=== PATIENT | female | born 1970 | race Caucasian/White ===

== ENCOUNTER 2016-07-22 00:30 | Inpatient (IN) | payer OTHER ==
--- NOTE | ~2016-07-22 | DS ---
Unit #: [id number] #: [id number] Patient: OBIE MORENO [id number] [address] [address] [id number] I MR#: [id number] NAME: OBIE MORENO ROOM: 568 Age: 46 Sex: F Admission Date: 07/22/2016 : 1970 Discharge Date: 07/25/2016 Attending Physician: Corrina Tom M.D. Primary Care Physician: No Primary Care Physician DISCHARGE SUMMARY PRINCIPAL DIAGNOSES 1. Acute on chronic hypercapnic/hypoxic respiratory failure, now maintained on 2 to 3 L per nasal cannula continuously. 2. Acute exacerbation of chronic obstructive pulmonary disease. 3. Acute on chronic systolic congestive heart failure with ejection fraction of 25% to 30%. 4. Iron deficiency anemia: Discharge hemoglobin 7.8. 5. Diabetes mellitus type 2, insulin requiring and uncontrolled. 6. Systemic inflammatory response syndrome, now resolved. 7. Hypokalemia, resolved. 8. Depression. 9. History of seizure versus pseudoseizure. 10. Atrial fibrillation, currently maintained in normal sinus rhythm. 11. Recent history of gastrointestinal bleed. 12. Obesity, morbid. 13. Mild protein malnutrition. 14. Pulmonary hypertension, moderate to severe. 15. Sepsis secondary to Moraxella bronchitis. CONSULTANTS Dr. Tejeda - Pulmonology. PROCEDURES 1. Two dimensional echocardiogram on July 22, 2016, with ejection fraction of 25% to 30%. Moderate concentric left ventricular hypertrophy noted. Moderately dilated left atrium and large right atrium and right ventricle. Mild to moderate mitral regurgitation, mild to moderate tricuspid regurgitation, mild to moderate pulmonic valve regurgitation. Right ventricular systolic pressure is 63 mmHg. 2. Chest x-ray on July 22, 2016, with interstitial prominence in the perihilar and lower lobe. 3. Bilateral extremity venous Doppler which is negative for DVT. 4. CT angiogram of the chest on July 22, 2016, which is negative for PE. Cardiomegaly with pleural effusion noted. Infiltrate or atelectasis left lower lobe noted. CLINICAL HISTORY/HOSPITAL COURSE Ms. Moreno is a nice 46-year-old -[place] female who presents to the emergency department with shortness of breath. Please refer to H and P for further details. In the emergency department, the patient was found to be hypertensive and oxygen saturations were low end of normal. BNP was mildly elevated and chest x-ray was concerning for pulmonary edema. The patient was Unit #: [id number] #: [id number] Patient: OBIE MORENO subsequently admitted. The patient was placed on IV diuretics in addition to IV steroids due to an associated COPD exacerbation. Pulmonary was consulted. The patient's mild pulmonary edema has resolved and, fortunately, her wheezing has also improved with IV steroids. We are going to transition to oral steroids. Sputum did grow Moraxella for which she has been on appropriate treatment. The patient did develop significant hyperglycemia, steroid-induced. Her hemoglobin A1c here is still currently pending. However, her sugars would range in the 200 to 300s. I am going to increase her Lantus at home and she will have to follow her diet closely while on steroid therapy. The patient's other chronic issues remain stable. She will be discharged home today. DISCHARGE CONDITION Stable. DISCHARGE STATUS Discharge to home. DISCHARGE MEDICATIONS 1. Azithromycin 250 mg p.o. daily for another four days. 2. Proventil nebulizer solution, 3 mL every four hours. 3. ProAir HFA, two puffs every four hours p.r.n. for shortness of breath. 4. Symbicort 160/4.5 mcg, two puffs b.i.d. 5. Prednisone 10 mg tablets, four tablets for three days, then three tablets for three days, then two tablets for three days, then one tablet for three days, then discontinue. 6. Amiodarone 200 mg daily. 7. Spiriva 18 mcg, one puff daily. 8. Gabapentin 300 mg t.i.d. 9. Keppra 1000 mg b.i.d. 10. Zonegran 100 mg daily. 11. Zoloft 50 mg at bedtime. 12. Metformin 1000 mg b.i.d. 13. Januvia 100 mg daily. 14. Phenergan 25 mg p.o. q.6 hours p.r.n. for nausea or vomiting. 15. Norvasc 5 mg daily. 16. Metoprolol tartrate 50 mg b.i.d. 17. Bumex 2 mg b.i.d. 18. Zaroxolyn 10 mg p.o. daily on Monday, Monday, Monday. 19. Lipitor 80 mg daily. 20. Hydralazine 50 mg t.i.d. 21. Losartan 100 mg daily. 22. Lantus 40 units subcutaneously at bedtime. 23. Ferrous sulfate 160 mg daily. 24. Singulair 10 mg daily. 25. A daily multivitamin. 26. [place] 10/325, one tablet p.o. q.6 hours p.r.n. for pain. 27. Prilosec 20 mg daily. 28. Imdur ER 120 mg daily. 29. Nitroglycerin 0.4 mg sublingual q.5 minutes p.r.n. for chest pain. 30. Folic acid 1 mg daily. DISCHARGE INSTRUCTIONS Unit #: [id number] #: [id number] Patient: OBIE MORENO The patient was instructed to follow a CCD, heart healthy, low calorie diet. She can continue Accu-Cheks a.c. and h.s. at home. She can increase her activity as tolerated. She should wear oxygen at 2 to 3 L per nasal cannula at all times. FOLLOWUP The patient will follow up with Dr. Tejeda in two weeks. She will follow up with her primary care provider in two weeks as well. Time spent on discharge - 34 minutes. Dictated by... Corrina Tom M.D. BURKE/kraig TD: 07/26/2016 09:15 JOB #: [id number] DISCHARGE SUMMARY Page 1 of 1 X Corrina Tom MD X DISCHARGE SUMMARY
--- NOTE | ~2016-07-22 | US84 ---
[id number] [facility] [address] [place], [place] [address] [id number] I MR#: [id number] Acc #: [id number] NAME: OBIE MORENO : 1970 SEX: F STUDY DATE/TIME: 07/22/2016 18:26 UNIT: [facility] ROOM: [facility] STUDY DESCRIPTION: US LE Veins Complete Homero Stdy Attending Physician: Corrina Tom M.D. Ordering Physician: Corrina Tom M.D. Primary Care Physician: No Primary Care Physician MEDICAL IMAGING REPORT This report is preliminary unless electronic signature is present EXAM Bilateral lower extremity venous duplex 07/22/2016 HISTORY Shortness of breath for 2 years with bilateral lower extremity edema for 1 week. Evaluate for deep vein thrombosis. TECHNIQUE Venous ultrasound examination of both lower extremities was performed using grayscale, spectral Doppler and color flow Doppler imaging. FINDINGS The examination is negative. There is no evidence of deep venous thrombus from the groin to the lower calf bilaterally. Visualized greater saphenous veins are also patent. IMPRESSION Negative examination. No evidence of lower extremity deep venous thrombosis. Dictated by... Gagan Garcia M.D. THIS IS AN ELECTRONICALLY VERIFIED REPORT Gagan Garcia M.D. at 07/25/2016 8:26 AM PINEDA/mildred TD: 07/22/2016 23:31 JOB #: [id number] MEDICAL IMAGING REPORT Page 1 of 1 COPY
--- NOTE | ~2016-07-22 | CR72 ---
[facility] A Service of [facility] RADIOLOGY TEXT RESULTS PATIENT: OBIE OMRENO LOCATION: [facility] 568-01 : [birth year] UNIT #: [id number] AGE: [address]: Corrina Tom MD SEX: F ORDER DR: [id number] [facility] [address]. [place], [place] [address] [id number] I MR#: [id number] Acc #: [id number] NAME: OBIE MORENO : 1970 SEX: F STUDY DATE/TIME: 07/25/2016 5:39 UNIT: [facility] ROOM: [facility] STUDY DESCRIPTION: CR Chest Single View Portable Attending Physician: Corrina Tom M.D. Ordering Physician: Willy Tejeda M.D. Primary Care Physician: Primary Care Physician No MEDICAL IMAGING REPORT This report is preliminary unless electronic signature is present EXAM AP portable chest 07/25/16 at 05:39. HISTORY Shortness breath, left side chest pain, congestive heart failure. Symptoms began 3 days ago. Additional history of COPD and hypertension. COMPARISON AP portable chest 07/22/2016. FINDINGS Moderate to marked generalized cardiac cardiomediastinal enlargement persists. The study is attenuated by body habitus. Ill-defined interstitial and alveolar opacities are thought to be present throughout the right lung, may be slightly increased. Developing consolidation and/or atelectasis with volume loss left lower lung noted. Left chest wall pacemaker appears stable. IMPRESSION 1. Increasing dense consolidation and/or atelectasis with volume loss in the left lower lobe. 2. Worsening diffuse interstitial and alveolar infiltrates in the right lung since 07/22/2016. 3. Moderate to marked generalized cardiomediastinal enlargement not thought to be significantly changed. In part, this could be related to pericardial effusion described on the 07/22/2016 CT chest, as well. 4. No visible pneumothorax. Dictated by... Loretta Story M.D. THIS IS AN ELECTRONICALLY VERIFIED REPORT [facility] A Service of [facility] RADIOLOGY TEXT RESULTS PATIENT: OBIE MORENO LOCATION: [facility] 568-01 : [birth year] UNIT #: [id number] AGE: [address]: Corrina Tom MD SEX: F ORDER DR: Loretta Story M.D. at 07/26/2016 2:00 PM KORINA/elias TD: 07/25/2016 11:17 JOB #: [id number] MEDICAL IMAGING REPORT Page 1 of 1 COPY
--- NOTE | ~2016-07-22 | EKG ---
PATIENT: OBIE MORENO UNIT #: [id number] Ventricular Rate: 106 BPM Atrial Rate: 106 BPM P-R Interval: 128 ms QRS Duration: 86 ms Q-T Interval: 366 ms QTC Calculation(Bezet): 486 ms P [place]: 35 degrees Calculated R [place]: 35 degrees Calculated T [place]: 12 degrees Diagnosis Line: Sinus tachycardia with occasional Premature Diagnosis Line: ventricular complexes Diagnosis Line: Nonspecific T wave abnormality Diagnosis Line: Abnormal ECG Diagnosis Line: No previous ECGs available Diagnosis Line: Confirmed by SONDRA CRUZ MD ([id number]) on Diagnosis Line: 07/22/2016 4:06:28 PM INTERPRETING MD: CONNIE
--- NOTE | ~2016-07-22 | CR72 ---
[facility] A Service of [facility] & [facility] RADIOLOGY TEXT RESULTS PATIENT: OBIE MORENO LOCATION: [facility] : [birth year] UNIT #: [id number] AGE: [address]: Thai Olguin MD SEX: F ORDER DR: [id number] [facility] [address] [place], [place] [address] [id number] MR#: [id number] Acc #: [id number] NAME: OBIE MORENO : 1970 SEX: F STUDY DATE/TIME: 07/22/2016 1:04 UNIT: [facility] ROOM: STUDY DESCRIPTION: CR Chest Single View Portable Attending Physician: Thai Olguin M.D. Ordering Physician: Thai Olguin M.D. Primary Care Physician: Primary Care Physician No MEDICAL IMAGING REPORT This report is preliminary unless electronic signature is present EXAM Portable chest INDICATIONS Shortness of air and left-sided chest pain 2 days. COMPARISON 04/01/15 FINDINGS This portable view of the chest shows stable marked cardiomegaly. There is mild interstitial prominence particularly in the perihilar and lower lobe regions. There are no effusions. The dual-lead pacemaker is stable. Dictated by... Obey Beaver M.D. THIS IS AN ELECTRONICALLY VERIFIED REPORT Obey Beaver M.D. at 07/22/2016 2:12 AM SONYA/scooter TD: 07/22/2016 01:49 JOB #: [id number] MEDICAL IMAGING REPORT Page 1 of 1 COPY
--- NOTE | ~2016-07-22 | HP ---
Unit #: [id number] #: [id number] Patient: OBIE MORENO [id number] [address] [place], [place] [address] [id number] I MR#: [id number] NAME: OBIE MORENO ROOM: 568 Age: 46 Sex: F Admission Date: 07/22/2016 : 1970 Attending Physician: Estefania Wesley M.D. Primary Care Physician: No Primary Care Physician HISTORY AND PHYSICAL CHIEF COMPLAINT Dyspnea. HISTORY This pleasant 46-year-old female with a cardiomyopathy, AODM, COPD is admitted for dyspnea. The patient tells me that she was admitted to [facility] about two weeks ago for what sounds to be a diverticular bleed while on Xarelto requiring transfusion. Her anticoagulation was discontinued, although I believe she is taking Plavix still. She states that she was well until two days ago when she developed increasing shortness of breath and orthopnea with constant lower nonradiating chest discomfort, perhaps with a minor pleuritic component. Also notes weight gain over the past week. She tried using her usual inhaler without improvement. Presented to this emergency department early this morning where she was hypertensive with a blood pressure of 182/102, her O2 saturation was 82% but this was on room air. Normally the patient requires 3 L of oxygen. On 3 L of oxygen her current O2 saturation is 96%. On examination she has significant bronchospasm bilaterally. Chest x-ray shows some mild congestive heart failure and the patient's BNP is modestly elevated. She was given nitroglycerin without improvement of her chest pain but this did help her blood pressure. Was given 2 mg of IV Bumex and some Tylenol. Continues to feel short of breath. PAST MEDICAL HISTORY 1. Congestive heart failure with an ejection fraction of 10-20%, status post AICD placement. Patient states that she abused cocaine in the remote past, which caused her cardiomyopathy. 2. COPD on 3 L of oxygen. 3. Atrial fibrillation. 4. Pseudoseizures. 5. AODM. 6. GI bleeding recently, which the patient states was diverticular. Will obtain records. 7. AICD. 8. Pacemaker. 9. D and C. 10. BTL. ALLERGIES Penicillin, Dilantin, Ibuprofen, Zofran, Levaquin, and Xarelto, although patient is not truly allergic to Xarelto, that caused GI bleeding. Unit #: [id number] #: [id number] Patient: OBIE MORENO HOME MEDICATIONS As best I can determine include albuterol, amiodarone 200 mg daily, Bumex 2 mg b.i.d., Neurontin 600 mg b.i.d., Imdur 60 mg daily, Keppra 1,000 mg b.i.d., Lantus 25 units subcu q.h.s., metoprolol 25 mg b.i.d., Prilosec daily, Symbicort, [place] 10/325 q.6 hours, Plavix, prednisone possibly 20 mg daily, NovoLog 15 units subcu b.i.d. with meals, losartan 100 mg daily, oxygen 3 L per nasal cannula, Zoloft 50 mg daily, Viagra 10 mg b.i.d. Will verify home medicines. FAMILY HISTORY CVA, diabetes, congestive heart failure. SOCIAL HISTORY The patient lives with her fiancee. Really smokes tobacco and does not drink alcohol. Remote history of cocaine use. Patient has been clean and sober for many years. REVIEW OF SYSTEMS Notable for shortness of breath, bronchospasm, COPD, cardiomyopathy, increased weight gain, hypertension, AODM, depression, chronic pain, above mentioned surgeries, GI bleeding. All other systems were reviewed and are otherwise negative. PHYSICAL EXAMINATION GENERAL: Pleasant, obese, 46-year-old female currently in no acute distress. VITAL SIGNS: Temperature 98.6, pulse 116, respirations 25, initial blood pressure 182/102. Current blood pressure is 158/94, O2 saturation is 96% on 3 L of oxygen but was 82% on room air. HEENT: Eyes - PERRLA, extraocular muscles are intact. Pharynx is benign. NECK: Supple without adenopathy or thyromegaly. CHEST: Chest reveals expiratory wheezes bilaterally. CARDIAC: Normal S1 and S2 without S3, S4 or murmur. ABDOMEN: Bowel sounds are present. No hepatosplenomegaly, tenderness or masses. EXTREMITIES: Without edema. Pedal pulses are present. No ulcers on the feet. NEUROLOGIC: Patient is awake, alert and oriented. Cranial nerves are intact. Equal strength throughout. DIAGNOSTIC STUDIES ADMISSION LABS: Hematocrit is 24.5 down from 32.2 three years ago; MCV 68, white blood count 12.1, normal platelet count. Coags normal. SMA 12 - glucose 222, potassium 3.2, chloride 96, CO2 is 34, calcium 7.7, albumin is 3.3. BNP is 442. Cardiac markers are negative. IMAGING STUDIES: Chest x-ray - stable marked cardiomegaly, mild congestive heart failure. CARDIOLOGY STUDIES: EKG - sinus tachycardia, rate 106, some nonspecific ST wave abnormalities. ASSESSMENT 1. Dyspnea, likely COPD exacerbation. Patient have a mild element of congestive heart failure. 2. Cardiomyopathy, ejection fraction 10% to 20%, status post AICD placement. 3. Microcytic anemia with history of what sounds to be diverticular Unit #: [id number] #: [id number] Patient: OBIE MORENO bleeding a couple of weeks ago at [facility]. Xarelto was discontinued at that time. 4. Chronic respiratory failure/COPD. 5. Hypertension. 6. Depression. 7. Chronic pain. 8. AODM. 9. Hypokalemia. PLANS 1. Replace potassium and check magnesium. 2. DuoNeb and steroids. 3. IV Bumex, obtain I's and O's and daily weights. 4. Will obtain an echo as the ER physician did perform a bedside echo and believes a pericardial effusion is present. 5. Transfuse 1 unit of blood. 6. Obtain D-dimer. 7. Obtain records from [facility]. 8. Verify home medicines. Dictated by Estefania Wesley M.D. AML/ts TD: 07/22/2016 06:20 JOB #: [id number] HISTORY AND PHYSICAL Page 1 of 1 X Estefania Wesley MD HISTORY AND PHYSICAL
--- NOTE | ~2016-07-22 | CT16 ---
[facility] A Service of [facility] & [facility] RADIOLOGY TEXT RESULTS PATIENT: OBIE MORENO LOCATION: [facility] 568-01 : [birth year] UNIT #: [id number] AGE: [address]: Corrina Tom MD SEX: F ORDER DR: [id number] [facility] [address]. [place], [place] [address] [id number] I MR#: [id number] Acc #: [id number] NAME: OBIE MORENO : 1970 SEX: F STUDY DATE/TIME: 07/22/2016 18:57 UNIT: [facility] ROOM: [facility] STUDY DESCRIPTION: CT Angio Chest for PE Attending Physician: Corrina Tom M.D. Ordering Physician: Corrina Tom M.D. Primary Care Physician: No Primary Care Physician MEDICAL IMAGING REPORT This report is preliminary unless electronic signature is present EXAM CT scan of the chest with intravenous contrast 07/22/2016 HISTORY Shortness of breath since 07/21/2016. Congestive heart failure, hypertension and diabetes. Evaluate for pulmonary embolus. TECHNIQUE Spiral CT was performed through the chest following intravenous contrast administration using pulmonary embolus protocol. 3-D reconstructions of the chest were then performed following intravenous contrast administration. This CT exam was performed with one or more of the following radiation dose reduction techniques: automatic control, adjustment of mA and/or kV according to patient size, and iterative reconstruction. FINDINGS There is no CT evidence for pulmonary embolus. There is mild cardiac enlargement. There is a pericardial effusion which measures 2 cm in greatest diameter. There is no significant thoracic adenopathy. There are no pleural effusions. Atelectatic changes are seen in the right middle lobe and the lower lobes bilaterally. Atelectasis or infiltrate left lower lobe. Images of the upper abdomen demonstrates stable low-density lesion on the right adrenal gland compared with 11/17/2013 probably representing an adenoma. IMPRESSION 1. No CT evidence for pulmonary embolus. 2. Cardiomegaly with pericardial effusion measuring 2 cm in greatest diameter. 3. Infiltrate or atelectasis left lower lobe. Clinical correlation recommended. 4. Stable low-density lesion extending off the right adrenal gland [facility] A Service of [facility] & [facility] RADIOLOGY TEXT RESULTS PATIENT: OBIE MORENO LOCATION: [facility] 568-01 : [birth year] UNIT #: [id number] AGE: [address]: Corrina Tom MD SEX: F ORDER DR: compared with 11/17/2013 probably representing an adenoma. Dictated by... Gagan Garcia M.D. THIS IS AN ELECTRONICALLY VERIFIED REPORT Gagan Garcia M.D. at 07/25/2016 8:27 AM PINEDA/mildred TD: 07/22/2016 23:59 JOB #: [id number] MEDICAL IMAGING REPORT Page 1 of 1 COPY
[~2016-07-22 00:30] MED LIST: ALBUTEROL17 GM INH; AMLODIPINE BESY10 MG PO; COLACE PO; COMBIVENT U/D3 M4 INH; CORDARONE200 M1 PO; FAMOTIDINE20 M1 PO; GABAPENTIN300 MG PO; GLUCOPHAGE XR500 MG PO; HYDRALAZINE HCL50 MG PO; LASIX20 MG PO; LEVETIRACETAM1000 MG PO; LIPITOR20 MG PO; LISINOPRIL20 MG PO; LOPRESSOR PO; LORTAB 5/500 TA1 TA2 PO; PHENERGAN25 M1 PO; SERTRALINE HCL25 M1 PO; XARELTO20 MG PO; ZONEGRAN100 M1 PO
[2016-07-22 01:07] LABS: BASOPHIL# 0.1 X10e3 (0-0.3); BASOPHIL% 0.6 % (0-2.5); EOSINOPHIL# 0.1 X10e3 (0-0.7); EOSINOPHIL% 0.6 % (0.0-7.0); HEMATOCRIT 24.5 % (35.0-45.0); HEMOGLOBIN 7.4 gm/dL (12.0-16.0); LYMPHOCYTE# 1.5 X10e3 (1.0-3.5); LYMPHOCYTE% 12.7 % (17.0-45.0); MEAN CELL VOLUME 67.9 FL (83-96); MEAN CORPUSCULAR HEMOGLOBIN 20.5 PG (28-34); MEAN CORPUSCULAR HGB CONC 30.2 g/dL (30-36); MEAN PLATELET VOLUME 8.6 FL (6.5-11.5); MONOCYTE# 0.9 X10e3 (0-1.0); MONOCYTE% 7.3 % (3.0-12.0); NEUTROPHIL# 9.6 X10e3 (1.5-7.1); NEUTROPHIL% 78.8 % (40-75); PLATELET COUNT 189 X10e3 (140-420); RED BLOOD COUNT 3.61 X10e (3.90-5.30); RED CELL DISTRIBUTION WIDTH 23.1 % (11.0-15.5); WHITE BLOOD COUNT 12.1 X10e3 (4.0-10.5)
[2016-07-22 01:09] LABS: DIFF IND YES
[2016-07-22 01:11] LABS: POC - CKMB 1.2 ng/mL (0.0-7.9); POC - TROPONIN <0.05 ng/mL (<=0.05)
[2016-07-22 01:17] LABS: PARTIAL THROMBOPLASTIN TIME 23.4 SECONDS (23.5-31.3)
[2016-07-22 01:23] LABS: ALBUMIN SERUM 3.3 g/dL (3.5-5.0); BILIRUBIN, DIRECT 0.2 mg/dL (0.0-0.2); BILIRUBIN,TOTAL 1.2 mg/dL (0.2-2.0); BUN/CREATININE RATIO 7.77; CALCIUM SERUM 7.7 mg/dL (8.4-10.2); CREATININE SERUM 0.9 mg/dL (0.6-1.4); GLOM FILT RATE Estimated 76.2 mL/min (>60); POTASSIUM 3.2 mmol/L (3.5-5.1); PROTEIN TOTAL SERUM 6.3 g/dL (6.0-8.3)
[2016-07-22 02:00] LABS: NUCLEATED RED BLOOD CELL 1 /100 (0); PLATELET ESTIMATE DECREASED (NORMAL)
[2016-07-22 02:01] LABS: OVALOCYTES PRESENT; POIKILOCYTOSIS SL; POLYCHROMASIA SL
[2016-07-22 02:42] LABS: POC - CKMB 1.6 ng/mL (0.0-7.9); POC - TROPONIN <0.05 ng/mL (<=0.05)
[2016-07-22] MEDS ORDERED: PT UNABLE TO RECALL (04:18)
[2016-07-22] MEDS ORDERED: FERROUS SULFAT160 MG PO (05:57)
[2016-07-22] MEDS ORDERED: LORTAB 10-3251 EACH PO (06:03)
[2016-07-22] MEDS ORDERED: PREDNISONE10 MG PO (06:04)
[2016-07-22] MEDS ORDERED: LOPRESSOR PO (06:04)
[2016-07-22] MEDS ORDERED: PROAIR HFA8.5 GM INH (06:06)
[2016-07-22] MEDS ORDERED: ALBUTEROL 0.5ML NEB (06:06)
[2016-07-22] MEDS ORDERED: AMIODARONE PO (06:06)
[2016-07-22] MEDS ORDERED: AMLODIPINE BESYL5 MG PO (06:07)
[2016-07-22] MEDS ORDERED: LIPITOR PO (06:07)
[2016-07-22] MEDS ORDERED: SYMBICORT INH (06:08)
[2016-07-22] MEDS ORDERED: BUMEX PO (06:08)
[2016-07-22] MEDS ORDERED: FOLIC ACID1 MG PO (06:08)
[2016-07-22] MEDS ORDERED: HYDRALAZINE HCL50 MG PO (06:09)
[2016-07-22] MEDS ORDERED: GABAPENTIN300 MG PO (06:09)
[2016-07-22] MEDS ORDERED: LANTUS100 U/ML SUBQ (06:10)
[2016-07-22] MEDS ORDERED: IMDUR PO (06:10)
[2016-07-22] MEDS ORDERED: KEPPRA1000 MG PO (06:11)
[2016-07-22] MEDS ORDERED: LISINOPRIL10 MG PO (06:11)
[2016-07-22] MEDS ORDERED: ZAROXOLYN10 MG PO (06:12)
[2016-07-22] MEDS ORDERED: METFORMIN PO (06:12)
[2016-07-22] MEDS ORDERED: SINGULAIR PO (06:13)
[2016-07-22] MEDS ORDERED: MULTIPLE VITAM1 EACH PO (06:14)
[2016-07-22] MEDS ORDERED: NITROSTAT0.4 MG SL (06:15)
[2016-07-22] MEDS ORDERED: PRILOSEC PO (06:15)
[2016-07-22] MEDS ORDERED: JANUVIA100 MG PO (06:16)
[2016-07-22] MEDS ORDERED: PHENERGAN25 M1 PO (06:16)
[2016-07-22] MEDS ORDERED: ZOLOFT PO (06:16)
[2016-07-22] MEDS ORDERED: SPIRIVA18 MCG INH (06:17)
[2016-07-22] MEDS ORDERED: ZONEGRAN100 M1 PO (06:17)
[2016-07-22 10:44] LABS: BASOPHIL% 0.3 % (0-2.5); HEMATOCRIT 27.3 % (35.0-45.0); HEMOGLOBIN 8.2 gm/dL (12.0-16.0); LYMPHOCYTE# 0.4 X10e3 (1.0-3.5); LYMPHOCYTE% 3.1 % (17.0-45.0); MEAN CORPUSCULAR HEMOGLOBIN 21.3 PG (28-34); MEAN CORPUSCULAR HGB CONC 29.9 g/dL (30-36); MEAN PLATELET VOLUME 9.2 FL (6.5-11.5); MONOCYTE# 0.1 X10e3 (0-1.0); NEUTROPHIL# 10.9 X10e3 (1.5-7.1); NEUTROPHIL% 95.6 % (40-75); PLATELET COUNT 182 X10e3 (140-420); RED BLOOD COUNT 3.84 X10e (3.90-5.30); RED CELL DISTRIBUTION WIDTH 24.5 % (11.0-15.5); WHITE BLOOD COUNT 11.4 X10e3 (4.0-10.5)
[2016-07-22 10:45] LABS: MEAN CELL VOLUME 71.2 FL (83-96)
[2016-07-22 10:46] LABS: DIFF IND NO
[2016-07-22 11:13] LABS: BUN/CREATININE RATIO 11.11; CALCIUM SERUM 7.9 mg/dL (8.4-10.2); CREATININE SERUM 0.9 mg/dL (0.6-1.4); GLOM FILT RATE Estimated 76.2 mL/min (>60); MAGNESIUM 1.2 mg/dL (1.6-3.0); POTASSIUM 4.2 mmol/L (3.5-5.1)
[2016-07-22 11:35] LABS: %MB 4.9 % (0.0-4.0)
[2016-07-22 17:59] LABS: URINE SOURCE CLEAN CATCH
[2016-07-22 18:03] LABS: URINE APPEARANCE CLEAR; URINE BILIRUBIN NEG (NEG); URINE BLOOD NEG (NEG); URINE COLOR YELLOW; URINE GLUCOSE NEG (NEG); URINE KETONE NEG (NEG); URINE LEUKOCYTE ESTERASE NEG (NEG); URINE NITRATE NEG (NEG); URINE PROTEIN NEG (NEG); URINE SPECIFIC GRAVITY 1.009 (1.003-1.035); URINE UROBILINOGEN 0.2 MG/DL (NEG)
[2016-07-22 18:47] LABS: PROTHROMBIN TIME (PATIENT) 10.9 SECONDS (10.0-11.7)
[2016-07-23 05:34] LABS: HEMATOCRIT 27.9 % (35.0-45.0); HEMOGLOBIN 8.2 gm/dL (12.0-16.0); MEAN CELL VOLUME 71.7 FL (83-96); MEAN CORPUSCULAR HEMOGLOBIN 21.1 PG (28-34); MEAN CORPUSCULAR HGB CONC 29.5 g/dL (30-36); MEAN PLATELET VOLUME 9.4 FL (6.5-11.5); RED BLOOD COUNT 3.9 X10e (3.90-5.30); RED CELL DISTRIBUTION WIDTH 24.1 % (11.0-15.5); WHITE BLOOD COUNT 13.4 X10e3 (4.0-10.5)
[2016-07-23 06:29] LABS: ALBUMIN SERUM 3.4 g/dL (3.5-5.0); BILIRUBIN,TOTAL 0.9 mg/dL (0.2-2.0); GLOM FILT RATE Estimated 67.1 mL/min (>60); MAGNESIUM 1.7 mg/dL (1.6-3.0); POTASSIUM 4.6 mmol/L (3.5-5.1); PROTEIN TOTAL SERUM 6.1 g/dL (6.0-8.3)
[2016-07-24 05:42] LABS: HEMATOCRIT 27.3 % (35.0-45.0); HEMOGLOBIN 7.9 gm/dL (12.0-16.0); MEAN CELL VOLUME 73.1 FL (83-96); MEAN CORPUSCULAR HEMOGLOBIN 21.2 PG (28-34); MEAN PLATELET VOLUME 9.7 FL (6.5-11.5); RED BLOOD COUNT 3.73 X10e (3.90-5.30); RED CELL DISTRIBUTION WIDTH 24.3 % (11.0-15.5); WHITE BLOOD COUNT 17.4 X10e3 (4.0-10.5)
[2016-07-24 06:12] LABS: BUN/CREATININE RATIO 14.16; CALCIUM SERUM 8.3 mg/dL (8.4-10.2); CREATININE SERUM 1.2 mg/dL (0.6-1.4); GLOM FILT RATE Estimated 53.8 mL/min (>60); POTASSIUM 4.3 mmol/L (3.5-5.1)
[2016-07-25 07:46] LABS: HEMATOCRIT 26.8 % (35.0-45.0); HEMOGLOBIN 7.8 gm/dL (12.0-16.0); MEAN CELL VOLUME 73.1 FL (83-96); MEAN CORPUSCULAR HEMOGLOBIN 21.3 PG (28-34); MEAN CORPUSCULAR HGB CONC 29.1 g/dL (30-36); MEAN PLATELET VOLUME 9.3 FL (6.5-11.5); RED BLOOD COUNT 3.67 X10e (3.90-5.30); RED CELL DISTRIBUTION WIDTH 24.5 % (11.0-15.5); WHITE BLOOD COUNT 16.4 X10e3 (4.0-10.5)
[2016-07-25 08:12] LABS: BUN/CREATININE RATIO 21.66; CALCIUM SERUM 8.2 mg/dL (8.4-10.2); CREATININE SERUM 1.2 mg/dL (0.6-1.4); GLOM FILT RATE Estimated 53.8 mL/min (>60); MAGNESIUM 1.9 mg/dL (1.6-3.0); POTASSIUM 3.9 mmol/L (3.5-5.1)
[2016-07-25] MEDS ORDERED: COZAAR100 MG PO (10:16)
[2016-07-25] MEDS ORDERED: AZITHROMYCIN250 MG PO (10:17)
[2016-07-25] MEDS ORDERED: PREDNISONE10 MG PO (10:17)
== END 2016-07-25 12:13 | disposition home or self-care (01) | DRG 871 ==
LOC: CED 00:30 → CEDOF 03:10 → CED 03:10 → CEDOF 03:58 → C5C 03:58 → CEDOF 07:10 → C5C 07:10
PROVIDERS: Emergency Medicine; Internal Medicine; Internal Medicine Pulmonary Disease; Nurse Practitioner
PROC: B246ZZZ Ultrasonography of Right and Left Heart (ICD-10-PCS; principal; 2016-07-22)
PROC: B32SYZZ Computerized Tomography (CT Scan) of Right Pulmonary Artery using Other Contrast (ICD-10-PCS; 2016-07-22)
PROC: B32TYZZ Computerized Tomography (CT Scan) of Left Pulmonary Artery using Other Contrast (ICD-10-PCS; 2016-07-22)
PROC: 30233N1 Transfusion of Nonautologous Red Blood Cells into Peripheral Vein, Percutaneous Approach (ICD-10-PCS; 2016-07-22)
PROC: B246ZZZ Ultrasonography of Right and Left Heart (ICD-10-PCS; 2016-07-22)
DX: A41.89 Other specified sepsis (principal); J96.22 Acute and chronic respiratory failure with hypercapnia; I50.23 Acute on chronic systolic (congestive) heart failure; J44.0 Chronic obstructive pulmonary disease with (acute) lower respiratory infection; E44.1 Mild protein-calorie malnutrition; I27.2 Other secondary pulmonary hypertension; E11.65 Type 2 diabetes mellitus with hyperglycemia; G40.909 Epilepsy, unspecified, not intractable, without status epilepticus; I48.91 Unspecified atrial fibrillation; Z68.41 Body mass index [BMI] 40.0-44.9, adult; J44.1 Chronic obstructive pulmonary disease with (acute) exacerbation; D50.9 Iron deficiency anemia, unspecified; E87.6 Hypokalemia; F32.9 Major depressive disorder, single episode, unspecified; E66.01 Morbid (severe) obesity due to excess calories; T38.0X5A Adverse effect of glucocorticoids and synthetic analogues, initial encounter; Z95.810 Presence of automatic (implantable) cardiac defibrillator; Z98.51 Tubal ligation status; Z79.02 Long term (current) use of antithrombotics/antiplatelets; Z79.4 Long term (current) use of insulin; Z79.52 Long term (current) use of systemic steroids; Z83.3 Family history of diabetes mellitus; Z82.3 Family history of stroke; G89.29 Other chronic pain; I25.5 Ischemic cardiomyopathy; J20.8 Acute bronchitis due to other specified organisms; I11.0 Hypertensive heart disease with heart failure
CPT/HCPCS: 36415; 71010; 71275; 80048; 80053; 80076; 81003; 82308; 82550; 82553; 82607; 82947; 83540; 83550; 83735; 83880; 84443; 84484; 85025; 85027; 85379; 85610; 85730; 86850; 86900; 86901; 86923; 87070; 87077; 87086; 87205; 87633; 93005; 93306; 93970; 94640; 94664; 94760; 96374; 99285; J0456; J0696; J1815; J2920; J2930; J3475; P9016; Q9967